=== PATIENT | female | born 1995 | race African-American/Black ===

== ENCOUNTER 2022-01-30 15:26 | Outpatient (CLI) | payer OTHER | END 2022-01-30 15:27 | disposition home or self-care (01) | LOC: CSHRAD 15:26 | PROVIDERS: ATTEND Physician Assistant | DX: L29.9 Pruritus, unspecified (principal) | CPT/HCPCS: 71046 ==

== ENCOUNTER 2023-07-27 20:29 | Emergency (ER) | payer OTHER ==
[2023-07-27] MEDS ORDERED: Ibuprofen 200 MG TAB ONE (21:25)
[2023-07-27 22:06] LABS: SARS-CoV-2 NAA Rapid Test Not Detected (NotDetected)
== END 2023-07-27 22:22 | disposition home or self-care (01) ==
LOC: CSHERS 20:29
DX: J10.1 Influenza due to other identified influenza virus with other respiratory manifestations (principal); Z20.822 Contact with and (suspected) exposure to COVID-19
CPT/HCPCS: 99283

== ENCOUNTER 2023-10-01 22:53 | Emergency (ER) | payer SELFPAY ==
[2023-10-01 23:31] LABS: BHCG - Serum Negative (NEGATIVE); Pregs Control Background? CLEAR/WHITE (CLR/WHITE); Pregs Control Bar Appear? YES (CONTROL BAR)
[2023-10-01 23:33] LABS: #Basophils 0.1 10x3/uL (0.0-0.2); #Eosinphils 0.2 10x3/uL (0.0-0.5); #Monocytes 0.5 10x3/uL (0.0-1.1); #Neutrophils 3.5 10x3/uL (1.5-8.4); %Basophils 0.7 % (0.0-2.0); %Lymphocytes 40.7 % (18.0-47.0); %Monocytes 6.9 % (0.0-10.0); %Neutrophils 48.4 % (40.0-75.0); Hematocrit 38.2 % (34.9-44.5); Hemoglobin 12.2 g/dL (12.0-15.5); Mean Corpuscular HGB CONC 31.9 g/dL (32.0-36.0); Mean Corpuscular Hemoglobin 29.3 pg (27.0-33.0); Mean Corpuscular Volume 91.6 fl (81.6-98.3); Mean Platelet Volume 9.9 fl (7.4-10.4); Platelet Count 337 10x3/uL (150-450); RBC Distribution Width 14.6 % (11.5-14.5); Red Blood Cell (RBC) Count 4.17 10x6/uL (3.90-5.03); White Blood Cell (WBC) Count 7.2 10x3/uL (3.5-10.5)
[2023-10-01 23:37] LABS: Anion Gap 12 mmol/L (10-20); BUN (Urea Nitrogen) 10 mg/dL (7.0-18.7); Calc. Creatinine Clearance 0 mL/min (70-130); Calcium 9.5 mg/dL (7.8-10.44); Carbon Dioxide 25 mmol/L (22-29); Chloride 104 mmol/L (98-107); Estimated GFR 110; Glucose 100 mg/dL (70-105); Potassium 3.8 mmol/L (3.5-5.1); Sodium 137 mmol/L (136-145)
[2023-10-02 00:22] LABS: SARS-CoV-2 NAA Rapid Test Not Detected (NotDetected)
== END 2023-10-02 00:42 | disposition home or self-care (01) ==
LOC: CSHERS 22:53
DX: J06.9 Acute upper respiratory infection, unspecified (principal)
CPT/HCPCS: 36415; 80048; 84703; 85025; 99283

== ENCOUNTER 2025-09-05 16:23 | Emergency (ER) | payer MEDICAID, OTHER ==
[2025-09-05] MEDS ORDERED: Acetaminophen 500 MG TAB ONE (17:10)
[2025-09-05] MEDS ORDERED: Ibuprofen 800 MG TAB ONE (17:10)
[2025-09-05 17:25] LABS: Glucose, Urine (Dipstick) Normal (Negative); Leukocyte 500 (Negative); Protein, Urine (Dipstick) 30 mg/dl (Neg-Trace); Specific Gravity, Urine 1.020 (1.005-1.030)
[2025-09-05 17:36] LABS: CAUTI Indications for Culture Fever or rigors; WBC/HPF 21-50 HPF (0-3)
[2025-09-05 17:37] LABS: Bacteria/HPF 2+ HPF (None Seen); Mucous/LPF 3+ LPF (<2+); Urine Culture Reflex Yes Yes
[2025-09-05 18:23] LABS: #Basophils 0.05 10x3/uL (0.0-0.2); #Eosinophils 0.07 10x3/uL (0.0-0.5); #Monocytes 1.14 10x3/uL (0.0-1.1); #Neutrophils 11.69 10x3/uL (1.5-8.4); %Basophils 0.3 % (0.0-2.0); %Eosinophils 0.5 % (0.0-6.0); %Lymphocytes 9.7 % (18.0-47.0); %Monocytes 7.9 % (0.0-10.0); %Neutrophils 81.1 % (40.0-75.0); Hematocrit 34.7 % (34.9-44.5); Hemoglobin 11.1 g/dL (12.0-15.5); Mean Corpuscular Hemoglobin 27.5 pg (27.0-33.0); Mean Corpuscular Volume 85.9 fL (81.6-98.3); Platelet Count 361 10x3/uL (150-450); Red Blood Cell (RBC) Count 4.04 10x6/uL (3.90-5.03); White Blood Cell (WBC) Count 14.42 10x3/uL (3.5-10.5)
[2025-09-05 18:34] LABS: ALT (SGPT) 8 U/L (Less than 34); AST (SGOT) 15 U/L (11-34); Albumin 4.0 g/dL (3.1-4.5); Alkaline Phosphatase 75 U/L (40-110); Anion Gap 14 mmol/L (10-20); BUN (Urea Nitrogen) 12 mg/dL (7.0-18.7); Bilirubin, Total 0.4 mg/dL (0.3-1.2); Calc. Creatinine Clearance 0 mL/min (70-130); Calcium 9.3 mg/dL (7.8-10.44); Carbon Dioxide 21 mmol/L (22-29); Chloride 103 mmol/L (98-107); Globulin 3.7 g/dL (2.4-3.5); Glucose 119 mg/dL (70-105); Potassium 3.3 mmol/L (3.5-5.1); Sodium 135 mmol/L (136-145)
[2025-09-05] MEDS ORDERED: cefTRIAXone (ROCEPHIN) 2 GM VIAL ONE (21:08)
[2025-09-06 01:21] LABS: Chlamydia by PCR, Vaginal Swab Not Detected (NotDetected); GC by PCR, Vaginal Swab DETECTED (NotDetected)
== END 2025-09-05 23:20 | disposition home or self-care (01) ==
LOC: CSHERS 16:23
DX: J02.0 Streptococcal pharyngitis (principal); N39.0 Urinary tract infection, site not specified
CPT/HCPCS: 36415; 80053; 81001; 83605; 85025; 87040; 87086; 87428; 87430; 87480; 87491; 87510; 87591; 87660; 96374; J0696; J1100